=== PATIENT | male | born 1965 | race Caucasian/White ===

== ENCOUNTER 2018-06-19 09:20 | Emergency (ER) | payer OTHER ==
[~2018-06-19] VITALS: Ht 177.8 cm; Wt 84.8 kg
[2018-06-19 09:24] VITALS: BP 121/79
--- NOTE | 2018-06-19 09:57 | NUR ---
Patient/Caregiver given discharge instructions and they have confirmed that they understand the instructions. Patient ambulatory with steady gait.
== END 2018-06-19 09:58 | disposition home or self-care (01) ==
LOC: ED 09:52
DX: K04.7 Periapical abscess without sinus (principal)
CPT/HCPCS: 99283

== ENCOUNTER 2019-02-18 09:46 | Emergency (ER) | payer SELFPAY ==
[~2019-02-18] VITALS: Ht 177.8 cm; Wt 83.2 kg
[2019-02-18 09:58] VITALS: BP 131/84
--- NOTE | 2019-02-18 10:35 | NUR ---
PT HERE WITH C/O DENTAL ABCESS, STATES HE HAS AN APPT WITH A DENTIST "COMING UP."
--- NOTE | 2019-02-18 10:55 | NUR ---
Patient/Caregiver given discharge instructions and they have confirmed that they understand the instructions. Patient ambulatory with steady gait.
== END 2019-02-18 10:57 | disposition home or self-care (01) ==
LOC: ED 10:51
DX: K02.9 Dental caries, unspecified (principal)
CPT/HCPCS: 99283